=== PATIENT | male | born 1955 | race Caucasian/White ===

== ENCOUNTER 2019-10-05 11:30 | Emergency (ER) | payer OTHER ==
[~2019-10-05] VITALS: Ht 188 cm; Wt 76.2 kg
[2019-10-05] MEDS ORDERED: VENTOLIN HFA 1818 GM INH (13:02)
[2019-10-05] MEDS ORDERED: TESSALON PERLE100 MG PO (13:02)
[2019-10-05] MEDS ORDERED: TAMIFLU75 MG PO (13:02)
[2019-10-05 13:21] VITALS: BP 131/74
== END 2019-10-05 13:34 | disposition home or self-care (01) ==
LOC: ER 11:30
DX: J10.1 Influenza due to other identified influenza virus with other respiratory manifestations (principal); I10 Essential (primary) hypertension; E78.00 Pure hypercholesterolemia, unspecified; E11.9 Type 2 diabetes mellitus without complications

== ENCOUNTER → 2020-05-29 | Outpatient (CLI) | payer OTHER ==
[~2020-05-29] MED LIST: TAMIFLU75 MG PO; TESSALON PERLE100 MG PO; VENTOLIN HFA 1818 GM INH
[2020-05-29 09:59] LABS: ABSOLUTE NEUTROPHILS 4.8 thou/uL (1.4-8.2); BASOPHILS 0.8 % (0.0-2.0); EOSINOPHILS 3.6 % (0.0-3.0); HEMOGLOBIN 14.9 gm/dL (14.0-18.0); LYMPHOCYTES 31.1 % (24.0-44.0); MCV 91.1 fL (80.0-100.0); MONOCYTES 7.2 % (1.0-8.0); PLATELET COUNT 261 thou/uL (150-400); POLYS 57.3 % (36.0-66.0); RBC 4.83 mil/uL (4.50-6.00); RDW 13.9 % (10.5-14.5); WBC 8.4 thou/uL (4.0-11.0)
[2020-05-29 10:19] LABS: ALBUMIN 3.8 g/dL (3.4-5.0); ANION GAP 9 mmol/L (7-16); BUN 13 mg/dL (7-18); CALCIUM 9.3 mg/dL (8.5-10.1); CHLORIDE 104 mmol/L (98-107); CHOLESTEROL 232 mg/dL (<200); CO2 29 mmol/L (21-32); GLUCOSE 126 mg/dL (74-106); HDL CHOLESTEROL 39 mg/dL (>40); LDL CHOLESTEROL 163 mg/dL (<100); POTASSIUM 4.4 mmol/L (3.5-5.1); SGOT 15 U/L (15-37); SGPT 30 U/L (30-65); SODIUM 142 mmol/L (136-145); TC:HDL 5.9 Ratio (Not establshd); TOTAL BILIRUBIN 0.4 mg/dL (0.2-1.0); TOTAL PROTEIN 7.5 g/dL (6.4-8.2); TRIGLYCERIDE 151 mg/dL (<150); VLDL 30 mg/dL (<40)
== END ==
LOC: LAB 09:02
PROVIDERS: ATTEND Nurse Practitioner
DX: Z12.5 Encounter for screening for malignant neoplasm of prostate (principal); Z13.220 Encounter for screening for lipoid disorders; Z00.00 Encounter for general adult medical examination without abnormal findings

== ENCOUNTER → 2020-07-10 | Outpatient (CLI) | payer OTHER | LOC: LAB 10:38 | DX: E11.9 Type 2 diabetes mellitus without complications (principal); I10 Essential (primary) hypertension; E78.5 Hyperlipidemia, unspecified; Z79.4 Long term (current) use of insulin ==

== ENCOUNTER 2020-07-17 12:05 | Emergency (ER) | payer OTHER ==
[~2020-07-17] VITALS: Ht 182.9 cm; Wt 107.5 kg
[2020-07-17 13:45] LABS: HEMATOCRIT 40.3 % (42.0-52.0); MCHC 34.8 g/dL (28.0-37.0); RBC 4.53 mil/uL (4.50-6.00); WBC 7.7 thou/uL (4.0-11.0)
[2020-07-17 13:56] LABS: POTASSIUM 3.9 mmol/L (3.5-5.1)
[2020-07-17 14:56] VITALS: BP 121/78
== END 2020-07-17 14:57 | disposition home or self-care (01) ==
LOC: ER 12:05
PROVIDERS: Emergency Medicine
DX: U07.1 COVID-19 (principal); E11.9 Type 2 diabetes mellitus without complications; I10 Essential (primary) hypertension; E78.00 Pure hypercholesterolemia, unspecified; Z79.899 Other long term (current) drug therapy

== ENCOUNTER → 2021-05-31 | Outpatient (CLI) | payer OTHER ==
[2021-05-31 11:22] LABS: ABSOLUTE NEUTROPHILS 5.1 thou/uL (1.4-8.2); BASOPHILS 0.5 % (0.0-2.0); EOSINOPHILS 2.8 % (0.0-3.0); HEMATOCRIT 44.6 % (42.0-52.0); LYMPHOCYTES 29.5 % (24.0-44.0); MCH 30.8 pg (26.0-34.0); MCHC 33.6 g/dL (28.0-37.0); MCV 91.6 fL (80.0-100.0); MONOCYTES 7.5 % (1.0-8.0); PLATELET COUNT 237 thou/uL (150-400); POLYS 59.7 % (36.0-66.0); RBC 4.87 mil/uL (4.50-6.00); RDW 13.6 % (10.5-14.5); WBC 8.5 thou/uL (4.0-11.0)
[2021-05-31 11:49] LABS: ALBUMIN 3.6 g/dL (3.4-5.0); ANION GAP 7 mmol/L (7-16); BUN 15 mg/dL (7-18); CALCIUM 8.7 mg/dL (8.5-10.1); CHLORIDE 104 mmol/L (98-107); CO2 29 mmol/L (21-32); GLUCOSE 138 mg/dL (74-106); POTASSIUM 4.5 mmol/L (3.5-5.1); SGOT 17 U/L (15-37); SGPT 31 U/L (16-63); SODIUM 140 mmol/L (136-145); TOTAL BILIRUBIN 0.4 mg/dL (0.2-1.0); TOTAL PROTEIN 7.2 g/dL (6.4-8.2)
[2021-05-31 15:32] LABS: CHOLESTEROL 197 mg/dL (<200); HDL CHOLESTEROL 36 mg/dL (>40); LDL CHOLESTEROL 111 mg/dL (<100); TC:HDL 5.5 Ratio (Not establshd); TRIGLYCERIDE 252 mg/dL (<150); VLDL 50 mg/dL (<40)
== END ==
LOC: LAB 09:58
PROVIDERS: ATTEND Nurse Practitioner
DX: Z12.5 Encounter for screening for malignant neoplasm of prostate (principal); Z13.220 Encounter for screening for lipoid disorders; Z00.00 Encounter for general adult medical examination without abnormal findings